=== PATIENT | female | born 1960 | race Caucasian/White ===

== ENCOUNTER → 2023-01-02 | Outpatient (CLI) | payer BC | LOC: M RAD 14:54 | PROVIDERS: ATTEND Otolaryngology | DX: J34.2 Deviated nasal septum (principal); J31.0 Chronic rhinitis ==

== ENCOUNTER → 2025-05-05 | Outpatient (REF) | LOC: M PLAIMG 11:49 | PROVIDERS: ATTEND Internal Medicine | DX: R52 Pain, unspecified (principal) ==